=== PATIENT | female | born 1980 | race American Indian/Alaskan Native ===

== ENCOUNTER 2018-09-24 09:58 | Emergency (ER) | payer SELFPAY ==
[2018-09-24 10:04] VITALS: BP 126/84
[2018-09-24] MEDS ORDERED: MORPHINE IV ONE (11:17)
[2018-09-24] MEDS ORDERED: NACL 0.9% 1000 ML 1,000 ML IV ONE (11:17)
[2018-09-24] MEDS ORDERED: ZOFRAN IV ONE (11:17)
--- NOTE | 2018-09-24 11:20 | Emergency Department Report ---
ED Abdominal Pain HPI - General Chief Complaint: Abdominal Pain Stated Complaint: ABD PAIN Time Seen by Provider: 09/24/18 11:06 Source: patient Mode of arrival: Ambulatory Limitations: No Limitations - History of Present Illness Initial Comments: 38-year-old female presents to ED with complaint of abdominal pain. Patient states "I feel like my pancreas is about to bust." Reports onset of pain this morning after drinking vignesh last night. Previous history of alcohol-induced pancreatitis. Patient states pain is diffuse. Reports nausea or vomiting, denies fever. MD Complaint: abdominal pain -: This morning Location: diffuse Radiation: none Migration to: no migration Severity: severe Consistency: constant Improves With: nothing Worsens With: nothing Context: other (recent alcohol use; hx pancreatitis) Associated Symptoms: nausea, vomiting. denies: diarrhea, fever - Related Data Previous Rx's Medication Instructions Recorded Last Taken Type Dicyclomine [Bentyl] 20 mg PO QID PRN #20 tablet 09/24/18 Unknown Rx Ondansetron [Zofran Odt] 4 mg PO Q8HR PRN #20 tab.rapdis 09/24/18 Unknown Rx Sulfamethoxazole/Trimethoprim 1 each PO BID #6 tablet 09/24/18 Unknown Rx [Bactrim DS TAB] Allergies Allergy/AdvReac Type Severity Reaction Status Date / Time aspirin AdvReac Nausea Verified 09/24/18 10:02 ED Review of Systems ROS: Stated complaint: ABD PAIN Other details as noted in HPI Comment: All other systems reviewed and negative Constitutional: denies: chills, fever Gastrointestinal: abdominal pain, nausea, vomiting ED Past Medical Hx - Past Medical History Previous Medical History?: Yes Additional medical history: Pancreatitis - Surgical History Past Surgical History?: No - Social History Smoking Status: Current Every Day Smoker Substance Use Type: Alcohol, Marijuana - Medications Home Medications: Home Medications Medication Instructions Recorded Confirmed Last Taken Type Dicyclomine [Bentyl] 20 mg PO QID PRN #20 tablet 09/24/18 Unknown Rx Ondansetron [Zofran Odt] 4 mg PO Q8HR PRN #20 tab.rapdis 09/24/18 Unknown Rx Sulfamethoxazole/Trimethoprim 1 each PO BID #6 tablet 09/24/18 Unknown Rx [Bactrim DS TAB] ED Physical Exam - General Limitations: No Limitations General appearance: alert - Head Head exam: Present: atraumatic, normocephalic - Eye Eye exam: Present: normal appearance - ENT ENT exam: Present: mucous membranes moist - Neck Neck exam: Present: normal inspection - Respiratory Respiratory exam: Present: normal lung sounds bilaterally. Absent: respiratory distress - Cardiovascular Cardiovascular Exam: Present: regular rate, normal rhythm - GI/Abdominal GI/Abdominal exam: Present: soft, tenderness (moderate diffuse tenderness), other (actively vomiting). Absent: distended - Extremities Exam Extremities exam: Present: normal inspection - Neurological Exam Neurological exam: Present: alert, oriented X3 - Psychiatric Psychiatric exam: Present: normal affect, normal mood - Skin Skin exam: Present: warm, dry, intact, normal color. Absent: rash ED Course Vital Signs 09/24/18 09/24/18 10:03 11:34 Temperature 98.4 F Pulse Rate 89 Respiratory 16 20 Rate Blood Pressure 126/84 O2 Sat by Pulse 100 Oximetry ED Medical Decision Making - Lab Data Result diagrams: 09/24/18 11:00 09/24/18 11:00 - Medical Decision Making - vitals normal - labs unremarkablle - tolerating PO - feeling much better - advised to quit drinking - outpt f/u advised - return precautions given - Differential Diagnosis pancreatitis, gastritis, uti Critical care attestation.: If time is entered above; I have spent that time in minutes in the direct care of this critically ill patient, excluding procedure time. ED Disposition Clinical Impression: Abdominal pain, UTI (urinary tract infection) Disposition: - TO HOME OR SELFCARE Is pt being admited?: No Condition: Stable Instructions: Urinary Tract Infection in Women (ED), Abdominal Pain (ED) Prescriptions: Sulfamethoxazole/Trimethoprim [Bactrim DS TAB] 1 each PO BID #6 tablet Dicyclomine [Bentyl] 20 mg PO QID PRN #20 tablet PRN Reason: abdominal pain Ondansetron [Zofran Odt] 4 mg PO Q8HR PRN #20 tab.rapdis PRN Reason: Vomiting Referrals: OLMAN COLLINS MD [Primary Care Provider] - 3-5 Days Forms: Work/School Release Form(ED) Time of Disposition: 13:42
[2018-09-24 11:23] LABS: Basophils # (Auto) 0.1 K/mm3 (0.0-0.1); Basophils % (Auto) 0.7 % (0.0-1.8); Eosinophils % (Auto) 0.2 % (0.0-4.3); Hematocrit 36.4 % (30.3-42.9); Hemoglobin 11.9 gm/dl (10.1-14.3); Lymphocytes # (Auto) 1.1 K/mm3 (1.2-5.4); Mean Corpuscular HGB Conc 33 % (30-34); Mean Corpuscular Volume 97 fl (79-97); Monocytes # (Auto) 0.5 K/mm3 (0.0-0.8); Monocytes % (Auto) 6.1 % (0.0-7.3); Platelet Count 312 K/mm3 (140-440); Red Blood Count 3.75 M/mm3 (3.65-5.03); Red Cell Distribution Width 17.2 % (13.2-15.2)
[2018-09-24 11:39] LABS: Alanine Aminotransferase 66 units/L (7-56); Albumin 4.2 g/dL (3.9-5); BUN/Creatinine Ratio 11; Blood Urea Nitrogen 8 mg/dL (7-17); Calcium 8.5 mg/dL (8.4-10.2); Hemolysis Index 6
[2018-09-24] MEDS ORDERED: K-DUR PO ONE (12:59)
[2018-09-24 13:03] LABS: HCG Qualitative,Urine Negative (Negative)
[2018-09-24 13:05] LABS: Bilirubin,Urine NEG (Negative); Blood,Urine NEG (Negative); Calcium Oxalate Crystals,Urine 3+; Color,Urine Amber (Yellow); Mucus,Urine 3+ /HPF
[2018-09-24] MEDS ORDERED: BENTYL IM ONE (13:40)
== END 2018-09-24 14:23 | disposition home or self-care (01) ==
LOC: ED 09:58
DX: N39.0 Urinary tract infection, site not specified (principal); F17.200 Nicotine dependence, unspecified, uncomplicated; F12.10 Cannabis abuse, uncomplicated; Z88.6 Allergy status to analgesic agent
CPT/HCPCS: 36415; 80053; 81001; 81025; 83690; 85025; 87086; 96361; 96372; 96374; 96375; 99284; J0500; J2270; J2405; J7030

== ENCOUNTER 2020-07-10 01:18 | Emergency (ER) | payer SELFPAY ==
[2020-07-10] MEDS ORDERED: FAMOTIDINE 20 MG TAB PO ONE (03:29)
[2020-07-10] MEDS ORDERED: ACETAMINOPHEN 500 MG TAB PO ONE (03:29)
[2020-07-10] MEDS ORDERED: diazePAM 5 MG TAB PO ONE (03:30)
[2020-07-10 03:43] VITALS: BP 135/90
--- NOTE | 2020-07-10 04:05 | XRay Report ---
RIGHT WRIST 4 VIEWS INDICATION: Right wrist pain after injury. COMPARISON: No relevant prior imaging study available. FINDINGS: No acute fracture or dislocation. Carpal alignment is normal. No significant soft tissue swelling. IMPRESSION: 1. No acute findings. LUMBAR SPINE AP AND LATERAL VIEWS INDICATION: Low back pain after injury. COMPARISON: No relevant prior imaging study available. FINDINGS: No acute fracture or subluxation is seen. No significant degenerative changes. Lumbar alignment is no rmal. SI joints are within normal limits. IMPRESSION: 1. No acute findings. Signer Name: Cuauhtemoc Moreland MD Signed: 07/10/2020 4:00 AM Workstation Name: [id number]
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
== END 2020-07-10 05:26 | disposition home or self-care (01) ==
LOC: ED 01:18
DX: S63.501A Unspecified sprain of right wrist, initial encounter (principal); M62.830 Muscle spasm of back; M54.5 Low back pain; G89.29 Other chronic pain; F17.200 Nicotine dependence, unspecified, uncomplicated; F41.9 Anxiety disorder, unspecified; F31.9 Bipolar disorder, unspecified; Z79.899 Other long term (current) drug therapy; Z88.2 Allergy status to sulfonamides; Y04.8XXA Assault by other bodily force, initial encounter; Y93.89 Activity, other specified; Y92.89 Other specified places as the place of occurrence of the external cause; Y99.8 Other external cause status
CPT/HCPCS: 72100

== ENCOUNTER 2020-09-01 08:33 | Emergency (ER) | payer SELFPAY ==
[2020-09-01] MEDS ORDERED: HALOPERIDOL LACTATE 5 MG/1 ML INJ ONE (08:57)
[2020-09-01] MEDS ORDERED: LORazepam 2 MG/ML VIAL ONE (08:57)
[2020-09-01] MEDS ORDERED: HALOPERIDOL LACTATE 5 MG/1 ML INJ IM PRN (08:57)
[2020-09-01] MEDS ORDERED: LORazepam 2 MG/ML VIAL IM PRN (08:57)
--- NOTE | 2020-09-01 08:58 | Emergency Department Report ---
ED General Adult HPI - General Chief complaint: Medical Clearance Stated complaint: BACK PAIN/MH PUI?: No Time Seen by Provider: 09/01/20 08:41 Source: patient, EMS ( EMS documentation not available at time of chart dicta tion ), RN notes reviewed, old records reviewed Mode of arrival: Ambulatory Limitations: Other (Intoxication, psychosis, disorganized behavior) - History of Present Illness Initial comments: The patient was evaluated in the emergency department for symptoms described in the history of present illness. He/she was evaluated in the context of the global COVID-19 pandemic, which necessitated consideration that the patient might be at risk for infection with the virus that causes COVID-19. Institutional protocols and algorithms that pertain to the evaluation of patients at risk for COVID-19 are in a state of rapid change based on information released by regulatory bodies including the CDC and federal and state organizations. These policies and algorithms were followed during the patient's care in the emergency department. Please note that these policies, procedures and recommendations changed on a rapid basis. The patient is a 40-year-old female. The patient presents to the ER today with EMS. The patient has a primary complaint of request for medication refill, including Lortab, and some psychiatric medications. The patient is yelling, screaming, and is throwing objects around in her room. The patient states that she might be but is not sure, and she denies homicidality, suicidality, although she did make comments about wanting to "beat my kids." The patient also complains of chronic back pain. The patient is a poor historian, agitated, belligerent, verbally combative and abusive, and does not describe exacerbating or relieving factors. Attempted to de-escalate patient with show of force and verbal techniques, ultimately required haloperidol and Ativan for acquisition of time sensitive diagnostics, and to de-escalate the patient. Patient did states that she does not think she has Covid. This patient is not known to myself previously. EMS documentation not available at time of chart dictation -: unknown Location: back - Related Data Previous Rx's Medication Instructions Recorded Last Taken Type Dicyclomine [Bentyl] 20 mg PO QID PRN #20 tablet 09/24/18 Unknown Rx Ondansetron [Zofran Odt] 4 mg PO Q8HR PRN #20 tab.rapdis 09/24/18 Unknown Rx Sulfamethoxazole/Trimethoprim 1 each PO BID #6 tablet 09/24/18 Unknown Rx [Bactrim DS TAB] Baclofen 20 mg PO Q8H PRN #30 tablet 07/10/20 Unknown Rx Tramadol HCl/Acetaminophen 1 each PO Q6H PRN #15 tablet 07/10/20 Unknown Rx [Ultracet Tablet] Allergies Allergy/AdvReac Type Severity Reaction Status Date / Time aspirin AdvReac Nausea Verified 09/24/18 10:02 ED Review of Systems ROS: Stated complaint: BACK PAIN/MH Other details as noted in HPI Comment: Unobtainable due to pts medical conditions Cardiovascular: denies: chest pain Gastrointestinal: denies: abdominal pain Musculoskeletal: back pain Psychiatric: other (Patient denies hallucinations.) ED Past Medical Hx - Past Medical History Hx Psychiatric Treatment: Yes (Anxiety, depression, Bipolar) Additional medical history: Pancreatitis - Social History Smoking Status: Current Every Day Smoker Substance Use Type: None - Medications Home Medications: Home Medications Medication Instructions Recorded Confirmed Last Taken Type Dicyclomine [Bentyl] 20 mg PO QID PRN #20 tablet 09/24/18 Unknown Rx Ondansetron [Zofran Odt] 4 mg PO Q8HR PRN #20 tab.rapdis 09/24/18 Unknown Rx Sulfamethoxazole/Trimethoprim 1 each PO BID #6 tablet 09/24/18 Unknown Rx [Bactrim DS TAB] Baclofen 20 mg PO Q8H PRN #30 tablet 07/10/20 Unknown Rx Tramadol HCl/Acetaminophen 1 each PO Q6H PRN #15 tablet 07/10/20 Unknown Rx [Ultracet Tablet] ED Physical Exam - General Limitations: Other (Intoxication, agitated) General appearance: appears intoxicated, anxious - Head Head exam: Present: atraumatic, normocephalic - Eye Eye exam: Present: normal appearance, EOMI - ENT ENT exam: Present: normal exam, normal orophraynx, mucous membranes moist - Neck Neck exam: Present: normal inspection, full ROM. Absent: tenderness, meningismus - Respiratory Respiratory exam: Present: normal lung sounds bilaterally. Absent: respiratory distress, wheezes, rales, rhonchi, stridor, decreased breath sounds - Cardiovascular Cardiovascular Exam: Present: normal rhythm, tachycardia, normal heart sounds. Absent: bradycardia, irregular rhythm, systolic murmur, diastolic murmur, rubs, gallop - GI/Abdominal GI/Abdominal exam: Present: soft. Absent: distended, tenderness, guarding, rebound, rigid, pulsatile mass - Extremities Exam Extremities exam: Present: normal inspection, full ROM, other (2+ pulses noted in the bilateral upper and lower extremities. There is no palpable cord. negative Homans sign. Muscular compartments are soft. The pelvis is stable.). Absent: pedal edema, calf tenderness - Back Exam Back exam: Absent: tenderness, CVA tenderness (R), CVA tenderness (L), parasp inal tenderness, vertebral tenderness - Neurological Exam Neurological exam: Present: abnormal gait (Unsteady gait), other (No facial droop. Tongue midline. Extraocular movements intact bilaterally. Facial sensation intact to light touch in V1, V2, V3 distribution bilaterally. 5 and a 5 strength in 4 extremities. Sensation intact to light touch in 4 extremities.) - Psychiatric Psychiatric exam: Present: agitated, anxious - Skin Skin exam: Present: warm, dry, intact, normal color. Absent: rash ED Course Vital Signs 09/01/20 09/01/20 08:35 11:55 Temperature 98.4 F 98 F Pulse Rate 102 H 98 H Respiratory 18 18 Rate Blood Pressure 123/97 Blood Pressure 124/84 [Right] O2 Sat by Pulse 100 99 Oximetry - Reevaluation(s) Reevaluation #1: 09/01/20 11:05 Differential diagnosis, including the not limited to: Alcohol intoxication, polysubstance intoxication, drug-induced psychosis and disorganized behavior, electrolyte derangement, thyroid derangement, closed head injury, medical clearance for psychiatric placement Assessment and plan: 40-year-old female who is intoxicated, agitated, and belligerent, throwing objects around her room, making nonspecific comments about violence. Place patient on hold status. Obtain appropriate laboratory studies. Obtain mental health consultation and evaluation. Obtain CT scan of the brain and cervical spine. Reassess after initial data points. 09/01/20 14:30 Laboratory studies unremarkable with the exception of elevated blood alcohol level. Noncontrast CT scan of the brain and cervical spine negative for acute findings. Urinalysis contaminated. At this point time, patient does not appear to have an immediate medical contraindication to psychiatric evaluation, consultation and placement. However, if the psychiatry team recommends discharge, there is no medical barrier to discharge at this time. ED Medical Decision Making - Lab Data Result diagrams: 09/01/20 12:53 09/01/20 09:12 Vital Signs 09/01/20 08:35 Temperature 98.4 F Pulse Rate 102 H Respiratory 18 Rate Blood Pressure 123/97 O2 Sat by Pulse 100 Oximetry Lab Results 09/01/20 09/01/20 09/01/20 Range/Units 09:12 09:12 09:12 Magnesium (1.7-2.3) mg/dL Total Creatine Kinase (30-135) units/L TSH 2.020 (0.270-4.200) mlU/mL HCG, Qual (Negative) Salicylates < 0.3 L (2.8-20.0) mg/dL Acetaminophen 5.0 L (10.0-30.0) ug/mL Plasma/Serum Alcohol (0-0.07) % 09/01/20 09/01/20 09/01/20 Range/Units 09:12 09:12 09:12 Magnesium 2.00 (1.7-2.3) mg/dL Total Creatine Kinase 355 H (30-135) units/L TSH (0.270-4.200) mlU/mL HCG, Qual Negative (Negative) Salicylates (2.8-20.0) mg/dL Acetaminophen (10.0-30.0) ug/mL Plasma/Serum Alcohol 0.12 H (0-0.07) % Lab Results 09/01/20 09/01/20 09/01/20 Range/Units 09:12 09:12 09:12 WBC (4.5-11.0) K/mm3 RBC (3.65-5.03) M/mm3 Hgb (10.1-14.3) gm/dl Hct (30.3-42.9) % MCV (79-97) fl MCH (28-32) pg MCHC (30-34) % RDW (13.2-15.2) % Plt Count (140-440) K/mm3 Sodium 140 (137-145) mmol/L Potassium 3.9 (3.6-5.0) mmol/L Chloride 100.8 (98-107) mmol/L Carbon Dioxide 25 (22-30) mmol/L Anion Gap 18 mmol/L BUN 6 L (7-17) mg/dL Creatinine 0.5 L (0.6-1.2) mg/dL Estimated GFR > 60 ml/min BUN/Creatinine Ratio 12 % Glucose 81 (65-100) mg/dL Calcium 8.7 (8.4-10.2) mg/dL Magnesium (1.7-2.3) mg/dL Total Bilirubin 0.30 (0.1-1.2) mg/dL AST 19 (5-40) units/L ALT 10 (7-56) units/L Alkaline Phosphatase 76 (35-129) units/L Total Creatine Kinase (30-135) units/L Total Protein 7.3 (6.3-8.2) g/dL Albumin 4.6 (3.9-5) g/dL Albumin/Globulin Ratio 1.7 % TSH 2.020 (0.270-4.200) mlU/mL HCG, Qual (Negative) Urine Color (Yellow) Urine Turbidity (Clear) Urine pH (5.0-7.0) Ur Specific [place] (1.003-1.030) Urine Protein (Negative) mg/dL Urine Glucose (UA) (Negative) mg/dL Urine Ketones (Negative) mg/dL Urine Blood (Negative) Urine Nitrite (Negative) Urine Bilirubin (Negative) Urine Urobilinogen (<2.0) mg/dL Ur Leukocyte Esterase (Negative) Urine WBC (Auto) (0.0-6.0) /HPF Urine RBC (Auto) (0.0-6.0) /HPF U Epithel Cells (Auto) (0-13.0) /HPF Urine Mucus /HPF Salicylates < 0.3 L (2.8-20.0) mg/dL Urine Opiates Screen Urine Methadone Screen Acetaminophen (10.0-30.0) ug/mL Ur Barbiturates Screen Ur Phencyclidine Scrn Ur Amphetamines Screen U Benzodiazepines Scrn Urine Cocaine Screen U Marijuana (THC) Screen Drugs of Abuse Note Plasma/Serum Alcohol (0-0.07) % 09/01/20 09/01/20 09/01/20 Range/Units 09:12 09:12 09:12 WBC (4.5-11.0) K/mm3 RBC (3.65-5.03) M/mm3 Hgb (10.1-14.3) gm/dl Hct (30.3-42.9) % MCV (79-97) fl MCH (28-32) pg MCHC (30-34) % RDW (13.2-15.2) % Plt Count (140-440) K/mm3 Sodium (137-145) mmol/L Potassium (3.6-5.0) mmol/L Chloride (98-107) mmol/L Carbon Dioxide (22-30) mmol/L Anion Gap mmol/L BUN (7-17) mg/dL Creatinine (0.6-1.2) mg/dL Estimated GFR ml/min BUN/Creatinine Ratio % Glucose (65-100) mg/dL Calcium (8.4-10.2) mg/dL Magnesium (1.7-2.3) mg/dL Total Bilirubin (0.1-1.2) mg/dL AST (5-40) units/L ALT (7-56) units/L Alkaline Phosphatase (35-129) units/L Total Creatine Kinase (30-135) units/L Total Protein (6.3-8.2) g/dL Albumin (3.9-5) g/dL Albumin/Globulin Ratio % TSH (0.270-4.200) mlU/mL HCG, Qual Negative (Negative) Urine Color (Yellow) Urine Turbidity (Clear) Urine pH (5.0-7.0) Ur Specific [place] (1.003-1.030) Urine Protein (Negative) mg/dL Urine Glucose (UA) (Negative) mg/dL Urine Ketones (Negative) mg/dL Urine Blood (Negative) Urine Nitrite (Negative) Urine Bilirubin (Negative) Urine Urobilinogen (<2.0) mg/dL Ur Leukocyte Esterase (Negative) Urine WBC (Auto) (0.0-6.0) /HPF Urine RBC (Auto) (0.0-6.0) /HPF U Epithel Cells (Auto) (0-13.0) /HPF Urine Mucus /HPF Salicylates (2.8-20.0) mg/dL Urine Opiates Screen Urine Methadone Screen Acetaminophen 5.0 L (10.0-30.0) ug/mL Ur Barbiturates Screen Ur Phencyclidine Scrn Ur Amphetamines Screen U Benzodiazepines Scrn Urine Cocaine Screen U Marijuana (THC) Screen Drugs of Abuse Note Plasma/Serum Alcohol 0.12 H (0-0.07) % 06/03/21 06/03/21 06/03/21 Range/Units 09:12 10:41 10:41 WBC (4.5-11.0) K/mm3 RBC (3.65-5.03) M/mm3 Hgb (10.1-14.3) gm/dl Hct (30.3-42.9) % MCV (79-97) fl MCH (28-32) pg MCHC (30-34) % RDW (13.2-15.2) % Plt Count (140-440) K/mm3 Sodium (137-145) mmol/L Potassium (3.6-5.0) mmol/L Chloride (98-107) mmol/L Carbon Dioxide (22-30) mmol/L Anion Gap mmol/L BUN (7-17) mg/dL Creatinine (0.6-1.2) mg/dL Estimated GFR ml/min BUN/Creatinine Ratio % Glucose (65-100) mg/dL Calcium (8.4-10.2) mg/dL Magnesium 2.00 (1.7-2.3) mg/dL Total Bilirubin (0.1-1.2) mg/dL AST (5-40) units/L ALT (7-56) units/L Alkaline Phosphatase (35-129) units/L Total Creatine Kinase 355 H (30-135) units/L Total Protein (6.3-8.2) g/dL Albumin (3.9-5) g/dL Albumin/Globulin Ratio % TSH (0.270-4.200) mlU/mL HCG, Qual (Negative) Urine Color Hannah (Yellow) Urine Turbidity Cloudy (Clear) Urine pH 5.0 (5.0-7.0) Ur Specific [place] 1.021 (1.003-1.030) Urine Protein 30 mg/dl (Negative) mg/dL Urine Glucose (UA) Neg (Negative) mg/dL Urine Ketones Neg (Negative) mg/dL Urine Blood Neg (Negative) Urine Nitrite Neg (Negative) Urine Bilirubin Neg (Negative) Urine Urobilinogen 2.0 (<2.0) mg/dL Ur Leukocyte Esterase Tr (Negative) Urine WBC (Auto) 12.0 H (0.0-6.0) /HPF Urine RBC (Auto) 2.0 (0.0-6.0) /HPF U Epithel Cells (Auto) 49.0 H (0-13.0) /HPF Urine Mucus 1+ /HPF Salicylates (2.8-20.0) mg/dL Urine Opiates Screen Negative Urine Methadone Screen Negative Acetaminophen (10.0-30.0) ug/mL Ur Barbiturates Screen Negative Ur Phencyclidine Scrn Negative Ur Amphetamines Screen Negative U Benzodiazepines Scrn Negative Urine Cocaine Screen Negative U Marijuana (THC) Screen Presumptive positive Drugs of Abuse Note Disclamer Plasma/Serum Alcohol (0-0.07) % 09/01/20 Range/Units 12:53 WBC 5.4 (4.5-11.0) K/mm3 RBC 3.72 (3.65-5.03) M/mm3 Hgb 10.2 (10.1-14.3) gm/dl Hct 30.7 (30.3-42.9) % MCV 83 (79-97) fl MCH 28 (28-32) pg MCHC 33 (30-34) % RDW 19.8 H (13.2-15.2) % Plt Count 381 (140-440) K/mm3 Sodium (137-145) mmol/L Potassium (3.6-5.0) mmol/L Chloride (98-107) mmol/L Carbon Dioxide (22-30) mmol/L Anion Gap mmol/L BUN (7-17) mg/dL Creatinine (0.6-1.2) mg/dL Estimated GFR ml/min BUN/Creatinine Ratio % Glucose (65-100) mg/dL Calcium (8.4-10.2) mg/dL Magnesium (1.7-2.3) mg/dL Total Bilirubin (0.1-1.2) mg/dL AST (5-40) units/L ALT (7-56) units/L Alkaline Phosphatase (35-129) units/L Total Creatine Kinase (30-135) units/L Total Protein (6.3-8.2) g/dL Albumin (3.9-5) g/dL Albumin/Globulin Ratio % TSH (0.270-4.200) mlU/mL HCG, Qual (Negative) Urine Color (Yellow) Urine Turbidity (Clear) Urine pH (5.0-7.0) Ur Specific [place] (1.003-1.030) Urine Protein (Negative) mg/dL Urine Glucose (UA) (Negative) mg/dL Urine Ketones (Negative) mg/dL Urine Blood (Negative) Urine Nitrite (Negative) Urine Bilirubin (Negative) Urine Urobilinogen (<2.0) mg/dL Ur Leukocyte Esterase (Negative) Urine WBC (Auto) (0.0-6.0) /HPF Urine RBC (Auto) (0.0-6.0) /HPF U Epithel Cells (Auto) (0-13.0) /HPF Urine Mucus /HPF Salicylates (2.8-20.0) mg/dL Urine Opiates Screen Urine Methadone Screen Acetaminophen (10.0-30.0) ug/mL Ur Barbiturates Screen Ur Phencyclidine Scrn Ur Amphetamines Screen U Benzodiazepines Scrn Urine Cocaine Screen U Marijuana (THC) Screen Drugs of Abuse Note Plasma/Serum Alcohol (0-0.07) % Vital Signs 09/01/20 09/01/20 08:35 11:55 Temperature 98.4 F 98 F Pulse Rate 102 H 98 H Respiratory 18 18 Rate Blood Pressure 123/97 Blood Pressure 124/84 [Right] O2 Sat by Pulse 100 99 Oximetry - Radiology Data Radiology results: pending, report reviewed, image reviewed [facility] [address] [place] [address] Cat Scan Report Signed Patient: HUMBERTO PAYAN MR#: [id number] : 1980 Acct:[id number] Age/Sex: 40 / F ADM Date: 09/01/20 Loc: ED Attending Dr: Ordering Physician: ARMIN FLOWERS MD Date of Service: 09/01/20 Procedure(s): CT head/brain wo con Accession Number(s): [id number] cc: ARMIN FLOWERS MD CT HEAD WITHOUT CONTRAST INDICATION / CLINICAL INFORMATION: ETOH INTOX. Aggressive behavior TECHNIQUE: Axial imaging performed from the skull apex through the skull base without the use of contrast. Sagittal and coronal reformatted images. All CT scans at this location are performed using CT dose reduction for ALARA by means of automated exposure control. COMPARISON: None available. FINDINGS: CEREBRAL PARENCHYMA: No significant abnormality. No acute territorial infarct. HEMORRHAGE: None. EXTRA-AXIAL SPACES: Normal in size and morphology for the patient's age. VENTRICULAR SYSTEM: Normal in size and morphology for the patient's age. MIDLINE SHIFT OR HERNIATION: None. CEREBELLUM / BRAINSTEM: No significant abnormality. CALVARIUM: No significant abnormality. ORBITS: Normal as visualized. PARANASAL SINUSES / MASTOID AIR CELLS: Normal as visualized. SOFT TISSUES of HEAD: No significant abnormality. ADDITIONAL FINDINGS: None. IMPRESSION: No acute intracranial abnormality. CT CERVICAL SPINE WITHOUT CONTRAST INDICATION: ETOH INTOX. Aggressive behavior. TECHNIQUE: Axial imaging performed through the cervical spine without the use of contrast. Sagittal and coronal reconstructed images were also reviewed. All CT scans at this location are performed using CT dose reduction for ALARA by means of automated exposure control. COMPARISON: None FINDINGS: Alignment: Spinal alignment is normal. Bones: There is no acute osseous abnormality. Mild multilevel discogenic DJD is present. Soft tissues: No acute or significant incidental soft tissue abnormality. IMPRESSION: No acute abnormality. Signer Name: Geoff Vasquez Jr, MD Signed: 09/01/2020 2:06 PM Workstation Name: [id number] Transcribed By: TTR Dictated By: GEOFF VASQUEZ JR, MD Electronically Authenticated By: GEOFF VASQUEZ JR, MD Signed Date/Time: 09/01/20 1406 DD/ 1405 Critical care attestation.: If time is entered above; I have spent that time in minutes in the direct care of this critically ill patient, excluding procedure time. ED Disposition Clinical Impression: Alcohol intoxication, Medical clearance for psychiatric admission, Aggressive behavior Disposition: [id number]/TX-65 PSY HOSP/PSY UNIT Is pt being admited?: No Does the pt Need Aspirin: No Condition: Good Referrals: PRIMARY CARE, [Primary Care Provider] - 3-5 Days
[2020-09-01 11:18] LABS: Bilirubin,Urine NEG (Negative); Blood,Urine NEG (Negative); Color,Urine Amber (Yellow); Mucus,Urine 1+ /HPF
[2020-09-01 11:23] LABS: Alanine Aminotransferase 10 units/L (7-56); Albumin 4.6 g/dL (3.9-5); BUN/Creatinine Ratio 12; Blood Urea Nitrogen 6 mg/dL (7-17); Calcium 8.7 mg/dL (8.4-10.2); Hemolysis Index 6
[2020-09-01 11:26] LABS: Amphetamine Screen,Urine Negative; Benzodiazepines Screen,Urine Negative; Cocaine Screen,Urine Negative; Methadone Screen,Urine Negative; Opiate Screen,Urine Negative
[2020-09-01 11:45] LABS: Cannabinoid Screen,Urine PRESUMPTIVE POSITIVE
[2020-09-01 14:09] LABS: Hematocrit 30.7 % (30.3-42.9); Hemoglobin 10.2 gm/dl (10.1-14.3); Mean Corpuscular HGB Conc 33 % (30-34); Mean Corpuscular Volume 83 fl (79-97); Platelet Count 381 K/mm3 (140-440); Red Blood Count 3.72 M/mm3 (3.65-5.03); Red Cell Distribution Width 19.8 % (13.2-15.2)
--- NOTE | 2020-09-01 14:10 | Cat Scan Report ---
CT HEAD WITHOUT CONTRAST INDICATION / CLINICAL INFORMATION: ETOH INTOX. Aggressive behavior TECHNIQUE: Axial imaging performed from the skull apex through the skull base without the use of cont rast. Sagittal and coronal reformatted images. All CT scans at this location are performed using CT dose reduction for ALARA by means of automated exposure control. COMPARISON: None available. FINDINGS: CEREBRAL PARENCHYMA: No significant abnormality. No acute territorial infarct. HEMORRHAGE: None. EXTRA-AXIAL SPACES: Normal in size and morphology for the patient's age. VENTRICULAR SYSTEM: Normal in size and morphology for the patient's age. MIDLINE SHIFT OR HERNIATION: None. CEREBELLUM / BRAINSTEM: No significant abnormality. CALVARIUM: No significant abnormality. ORBITS: Normal as visualized. PARANASAL SINUSES / MASTOID AIR CELLS: Normal as visualized. SOFT TISSUES of HEAD: No significant abnormality. ADDITIONAL FINDINGS: None. IMPRESSION: No acute intracranial abnormality. CT CERVICAL SPINE WITHOUT CONTRAST INDICATION: ETOH INTOX. Aggressive behavior. TECHNIQUE: Axial imaging performed through the cervical spine without the use of contrast. Sagittal and coronal reconstructed images were also reviewed. All CT scans at this location are performed us ing CT dose reduction for ALARA by means of automated exposure control. COMPARISON: None FINDINGS: Alignment: Spinal alignment is normal. Bones: There is no acute osseous abnormality. Mild multilevel discogenic DJD is present. Soft tissues: No acute or significant incidental soft tissue abnormality. IMPRESSION: No acute abnormality. Signer Name: Geoff Vasquez Jr, MD Signed: 09/01/2020 2:06 PM Workstation Name: [id number]
[2020-09-01] MEDS ORDERED: NICOTINE 14 MG/24 HR PATCH TD ONE (18:48)
[2020-09-01] MEDS: ACETAMINOPHEN 325 MG TAB PO PRN (19:35)
--- NOTE | 2020-09-02 10:29 | Event Note ---
S: " I am straight. I just need my meds. I just got out of snf. I can go to the [facility]. I am ready to go." O: Stable vital signs, appears well and comfortable A: Alcohol intoxication, now sober, patient is medically clear P: Awaiting treatment recommendations from behavioral health team
--- NOTE | 2020-09-02 12:04 | Consultation ---
History of Present Illness - Reason for Consult Consult date: 09/02/20 Reason for consult: homicidal - History of Present Psychiatric Illness Per ED Note: The patient is a 40-year-old female. The patient presents to the ER today with EMS. The patient has a primary complaint of request for medication refill, including Lortab, and some psychiatric medications. The patient is yelling, screaming, and is throwing objects around in her room. The patient states that she might be but is not sure, and she denies homicidality, suicidality, although she did make comments about wanting to "beat my kids." The patient also complains of chronic back pain. The patient was seen today, she is irritable and requesting to leave. She says "I walked myself in here I can walk myself out." The patient says "the research laboratory technician are harassing me. They all keep harassing me and I don't know why." The patient starts walking around and talking about things out of the blue, "I got a lot of women and some kids too." She then says "I'm getting my stuff and leaving so I can go smoke." PAST PSYCHIATRIC HISTORY: Diagnoses: Schizophrenia and bipolar Suicide attempts or Self-harm behavior: None reported Prior psychiatric hospitalizations: Yes Substance Abuse history: Denies illicit drug use but then asked for cocaine Previous psychiatric medications tried: Yes Outpatient treatment: Yes PAST MEDICAL HISTORY: Diabetes, hypertension, tried Family Psychiatric History: None reported or documented SOCIAL HISTORY Marital Status: single Living Arrangements: With self Employment Status: [employer] Access to guns/weapons: None reported Education: Some high school History of Abuse: None reported Legal History: None reported REVIEW OF SYSTEMS Constitutional: Negative for weight loss ENT: Negative for stridor Respiratory: Negative for cough or hemoptysis All other systems reviewed and are negative MENTAL STATUS EXAMINATION General Appearance and Behavior: Age appropriate, good hygiene, wearing appropriate clothes,, good eye contact Cooperation: Participating/engaged, but Guarded Psychomotor Behavior: Psychomotor normal Mood: depressed Affect and affective range: irritable, labile Thought Process: illogical Thought Content: hopelessness, helplessness Speech: Normal rate, volume and rythm Intellectual Functioning: Average Suicidal Ideation: SI Homicidal Ideation: Denies HI Impulse Control: Impaired Insight and Judgment: Limited insight and judgment Memory: Normal Attention: Normal Orientation: Alert, oriented Assessment and Plan (1) Bipolar Disorder Current Visit: Yes Status: Acute Treatment Plan Seroquel 100mg po qhs Zoloft 25mg po daily Risks, benefits and alternatives of medications discussed with the patient, questions answered and consent obtained from patient. PSYCHOTHERAPY: Supportive psychotherapy provided MEDICAL: Per primary team DELIRIUM PRECAUTIONS: Please re-orient patient frequently, keep lights on during the day, and minimize benzodiazepines and opiates as these medications could worsen patient's confusion. SECOND HELPER: DISPOSITION: Recommend acute inpatient psychiatric hospitalization at this time. Case discussed with Dr. Song who agrees with current disposition LEGAL STATUS: 1013 FOLLOW-UP: Will follow Thank you for the consult. Please contact with any questions and/or concerns. Medications and Allergies Allergies Allergy/AdvReac Type Severity Reaction Status Date / Time aspirin AdvReac Nausea Verified 09/24/18 10:02 Home Medications Medication Instructions Recorded Confirmed Last Taken Type Dicyclomine [Bentyl] 20 mg PO QID PRN #20 tablet 09/24/18 Unknown Rx Ondansetron [Zofran Odt] 4 mg PO Q8HR PRN #20 tab.rapdis 09/24/18 Unknown Rx Sulfamethoxazole/Trimethoprim 1 each PO BID #6 tablet 09/24/18 Unknown Rx [Bactrim DS TAB] Baclofen 20 mg PO Q8H PRN #30 tablet 07/10/20 Unknown Rx Tramadol HCl/Acetaminophen 1 each PO Q6H PRN #15 tablet 07/10/20 Unknown Rx [Ultracet Tablet] Active Meds: Active Medications Acetaminophen (Acetaminophen 325 Mg Tab) 650 mg PO Q6HR PRN PRN Reason: PAIN Last Admin: 09/01/20 19:35 Dose: 650 mg Documented by: Haloperidol Lactate (Haloperidol Lactate 5 Mg/1 Ml Inj) 5 mg IM Q6HR PRN PRN Reason: Agitation Lorazepam (Lorazepam 2 Mg/Ml Vial) 2 mg IM Q4HR PRN PRN Reason: Agitation Mental Status Exam - Vital signs Last Vital Signs Temp 98.7 F 09/02/20 04:23 Pulse 74 09/02/20 09:12 Resp 18 09/02/20 09:12 BP 118/64 09/02/20 09:12 Pulse Ox 98 09/02/20 09:12 Results Result Diagrams: 09/01/20 12:53 09/01/20 09:12 Abnormal lab results 09/01/20 Range/Units 12:53 RDW 19.8 H (13.2-15.2) % All other labs normal.
[2020-09-02] MEDS ORDERED: NICOTINE 14 MG/24 HR PATCH TD ONE (12:05)
[2020-09-02] MEDS: ACETAMINOPHEN 325 MG TAB PO PRN ×2 (12:12→14:21)
[2020-09-02] MEDS ORDERED: SERTRALINE 25 MG TAB PO SCH (14:00)
[2020-09-02 15:54] VITALS: BP 150/80
[2020-09-02] MEDS ORDERED: QUEtiapine 100 MG TAB PO SCH (22:00)
== END 2020-09-02 16:21 ==
LOC: ED 08:33
DX: F10.129 Alcohol abuse with intoxication, unspecified (principal); R45.6 Violent behavior; Z20.822 Contact with and (suspected) exposure to COVID-19; F41.9 Anxiety disorder, unspecified; F31.9 Bipolar disorder, unspecified; F17.200 Nicotine dependence, unspecified, uncomplicated; Z88.8 Allergy status to other drugs, medicaments and biological substances; Z79.899 Other long term (current) drug therapy; Y90.9 Presence of alcohol in blood, level not specified
CPT/HCPCS: 36415; 70450; 72125; 80053; 80307; 81001; 82550; 83735; 84443; 84703; 85027; 87086; 99285; J1630; J2060; U0003; 80320; G0480